=== PATIENT | female | born 1970 | race Caucasian/White ===

== ENCOUNTER 2018-07-06 08:46 | Outpatient (RCR) | payer BC, SELFPAY | END 2018-07-09 23:59 | disposition home or self-care (01) | LOC: INF 08:46 | PROVIDERS: PCP Physician Assistant; Visit Provider Internal Medicine Hematology & Oncology | DX: R69 Illness, unspecified (principal) ==

== ENCOUNTER 2018-07-31 01:02 | Outpatient (RCR) | payer MEDICAID, SELFPAY ==
[2018-07-17] MEDS: Normal Saline Flush 10 ML SYR IVP (07:58)
[2018-07-17 08:02] LABS: Abs Immature Grans 0.01 k/cumm (0.0-0.09); Absolute Basophil Count 0.04 k/cumm (0.0-0.2); Absolute Eosinophil Count 0.78 k/cumm (0.0-0.7); Absolute Lymphocyte Count 0.67 k/cumm (1.2-3.4); Absolute Monocyte Count 0.38 k/cumm (0.11-0.7); Absolute Neutrophil Count 4.42 k/cumm (1.2-6.7); Basophils % 0.6; Eosinophils % 12.4; HCT 35.1 % (36.0-46.0); HGB 10.9 g/dL (12.0-15.5); Immature Grans % 0.2; Lymphocytes % 10.6; Mean Corp. HGB Concentration 31.1 g/dL (32.0-36.0); Mean Corpuscular Hemoglobin 24.2 pg (27.0-33.0); Mean Corpuscular Volume 77.8 fL (80-95); Mean Platelet Volume 9.9 fL (8.0-11.0); Neutrophils % 70.2; Platelet Count 376 x1000/uL (130-400); RBC 4.51 m/cumm (4.00-5.20); RBC Distribution Width 14.3 % (11.7-14.6)
[2018-07-17 08:14] LABS: ALT 15 U/L (12-78); AST 9 U/L (15-37); Albumin 3.7 g/dL (3.4-5.0); Alkaline Phosphatase 76 U/L (46-116); Anion Gap 8.7 mmol/L (3-11); BUN 14 mg/dL (7-18); Bilirubin, Total 0.2 mg/dL (0.2-1.0); CO2 27.3 mmol/L (21.0-32.0); CREATININE 1.03 mg/dL (0.55-1.02); Calcium 10.2 mg/dL (8.5-10.1); Chloride 105 mmol/L (98-107); Estimated GFR 57.69 (mL/min/1.73m2); Glucose 100 mg/dL (70-100); Sodium 141 mmol/L (136-145); Total Protein 7.9 g/dL (6.4-8.2)
[2018-07-20 11:17] LABS: CEA <0.5 ng/ml
[2018-07-23] MEDS: Heparin 500 UNITS/5 ML SYRINGE IV (12:03)
[2018-07-23] MEDS: Normal Saline Flush 10 ML SYR IVP (12:03)
[2018-07-23 12:13] LABS: Absolute Basophil Count 0.01 k/cumm (0.0-0.2); Absolute Eosinophil Count 0.39 k/cumm (0.0-0.7); Absolute Lymphocyte Count 0.45 k/cumm (1.2-3.4); Absolute Monocyte Count 0.18 k/cumm (0.11-0.7); Absolute Neutrophil Count 3.26 k/cumm (1.2-6.7); Basophils % 0.2; Eosinophils % 9.1; HCT 33.2 % (36.0-46.0); HGB 10.4 g/dL (12.0-15.5); Lymphocytes % 10.5; Mean Corp. HGB Concentration 31.3 g/dL (32.0-36.0); Mean Corpuscular Hemoglobin 24.1 pg (27.0-33.0); Mean Corpuscular Volume 76.9 fL (80-95); Mean Platelet Volume 10.5 fL (8.0-11.0); Monocytes % 4.2; Platelet Count 309 x1000/uL (130-400); RBC 4.32 m/cumm (4.00-5.20); White Blood Cell Count 4.29 k/cumm (4.4-10.8)
[2018-07-23 12:27] LABS: ALT 23 U/L (12-78); AST 12 U/L (15-37); Albumin 3.3 g/dL (3.4-5.0); Alkaline Phosphatase 68 U/L (46-116); Anion Gap 10.1 mmol/L (3-11); BUN 13 mg/dL (7-18); Bilirubin, Total 0.2 mg/dL (0.2-1.0); CO2 26.9 mmol/L (21.0-32.0); CREATININE 0.96 mg/dL (0.55-1.02); Calcium 8.9 mg/dL (8.5-10.1); Chloride 106 mmol/L (98-107); Glucose 104 mg/dL (70-100); Potassium 3.6 mmol/L (3.5-5.1); Sodium 143 mmol/L (136-145); Total Protein 6.8 g/dL (6.4-8.2)
[2018-07-24 08:55] LABS: CEA <0.5 ng/ml
== END 2018-08-06 23:59 | disposition home or self-care (01) ==
LOC: INF 01:02
PROVIDERS: PCP Physician Assistant; Visit Provider Internal Medicine Hematology & Oncology
DX: C20 Malignant neoplasm of rectum (principal); Z45.2 Encounter for adjustment and management of vascular access device
CPT/HCPCS: 36591; 80053; 82378; 85025

== ENCOUNTER 2018-08-28 01:27 | Outpatient (RCR) | payer MEDICAID, SELFPAY ==
[2018-08-14] MEDS: Normal Saline Flush 10 ML SYR IVP (08:11)
[2018-08-14 08:20] LABS: Absolute Basophil Count 0.04 k/cumm (0.0-0.2); Absolute Eosinophil Count 0.59 k/cumm (0.0-0.7); Absolute Lymphocyte Count 0.51 k/cumm (1.2-3.4); Absolute Monocyte Count 0.43 k/cumm (0.11-0.7); Absolute Neutrophil Count 1.27 k/cumm (1.2-6.7); Basophils % 1.4; Eosinophils % 20.8; HCT 33.4 % (36.0-46.0); HGB 10.6 g/dL (12.0-15.5); Mean Corp. HGB Concentration 31.7 g/dL (32.0-36.0); Mean Corpuscular Hemoglobin 23.5 pg (27.0-33.0); Mean Corpuscular Volume 73.9 fL (80-95); Monocytes % 15.1; Neutrophils % 44.7; RBC 4.52 m/cumm (4.00-5.20); RBC Distribution Width 15.2 % (11.7-14.6); White Blood Cell Count 2.84 k/cumm (4.4-10.8)
[2018-08-14 08:29] LABS: ALT 43 U/L (12-78); AST 14 U/L (15-37); Albumin 3.2 g/dL (3.4-5.0); Alkaline Phosphatase 98 U/L (46-116); Anion Gap 8.3 mmol/L (3-11); BUN 10 mg/dL (7-18); Bilirubin, Total 0.2 mg/dL (0.2-1.0); CO2 25.7 mmol/L (21.0-32.0); CREATININE 0.81 mg/dL (0.55-1.02); Calcium 8.8 mg/dL (8.5-10.1); Chloride 107 mmol/L (98-107); Glucose 98 mg/dL (70-100); Potassium 3.6 mmol/L (3.5-5.1); Sodium 141 mmol/L (136-145); Total Protein 6.5 g/dL (6.4-8.2)
[2018-08-14 08:38] LABS: Anisocytosis 1+; Diff Comment Diff Reviewed; Platelet Count 258 x1000/uL (130-400)
[2018-08-14 08:39] LABS: Hypochromasia 1+; Microcytosis 2+; Ovalocytes 2+; Polychromasia Present
[2018-08-14 08:40] LABS: Poikilocytes 1+
[2018-08-17 10:30] LABS: CEA <0.5 ng/ml
[2018-08-28 09:26] LABS: Absolute Basophil Count 0.02 k/cumm (0.0-0.2); Absolute Eosinophil Count 0.46 k/cumm (0.0-0.7); Absolute Lymphocyte Count 0.52 k/cumm (1.2-3.4); Absolute Monocyte Count 0.26 k/cumm (0.11-0.7); Absolute Neutrophil Count 1.33 k/cumm (1.2-6.7); Basophils % 0.8; Eosinophils % 17.8; HCT 33.9 % (36.0-46.0); Lymphocytes % 20.1; Mean Corp. HGB Concentration 32.4 g/dL (32.0-36.0); Mean Corpuscular Hemoglobin 23.6 pg (27.0-33.0); Mean Corpuscular Volume 72.7 fL (80-95); Neutrophils % 51.3; Platelet Count 236 x1000/uL (130-400); RBC 4.66 m/cumm (4.00-5.20); RBC Distribution Width 16.6 % (11.7-14.6); White Blood Cell Count 2.59 k/cumm (4.4-10.8)
[2018-08-28] MEDS: Normal Saline Flush 10 ML SYR IVP (09:34)
[2018-08-28 09:44] LABS: ALT 22 U/L (12-78); AST 16 U/L (15-37); Albumin 3.6 g/dL (3.4-5.0); Alkaline Phosphatase 92 U/L (46-116); Anion Gap 9.8 mmol/L (3-11); BUN 11 mg/dL (7-18); Bilirubin, Total 0.4 mg/dL (0.2-1.0); CO2 22.2 mmol/L (21.0-32.0); CREATININE 0.86 mg/dL (0.55-1.02); Calcium 9.3 mg/dL (8.5-10.1); Chloride 105 mmol/L (98-107); Glucose 95 mg/dL (70-100); Sodium 137 mmol/L (136-145); Total Protein 7.3 g/dL (6.4-8.2)
[2018-08-28 09:45] LABS: Anisocytosis 1+; Diff Comment Diff Reviewed; Hypochromasia 1+; Microcytosis 2+; Schistocytes 1+
[2018-08-28 09:46] LABS: Poikilocytes 2+
[2018-08-28 09:48] LABS: Ovalocytes 2+
[2018-08-31 09:57] LABS: CEA <0.5 ng/ml
== END 2018-09-06 23:59 | disposition home or self-care (01) ==
LOC: INF 01:27
PROVIDERS: PCP Physician Assistant; Visit Provider Internal Medicine Hematology & Oncology
DX: C20 Malignant neoplasm of rectum (principal); Z45.2 Encounter for adjustment and management of vascular access device
CPT/HCPCS: 36591; 80053; 82378; 85025

== ENCOUNTER 2018-09-25 00:54 | Outpatient (RCR) | payer MEDICAID, SELFPAY ==
[2018-09-11] MEDS: Normal Saline Flush 10 ML SYR IVP (07:11)
[2018-09-11 07:22] LABS: Absolute Basophil Count 0.03 k/cumm (0.0-0.2); Absolute Eosinophil Count 0.26 k/cumm (0.0-0.7); Absolute Lymphocyte Count 0.47 k/cumm (1.2-3.4); Absolute Monocyte Count 0.34 k/cumm (0.11-0.7); Absolute Neutrophil Count 1.55 k/cumm (1.2-6.7); Basophils % 1.1; Eosinophils % 9.8; HGB 10.7 g/dL (12.0-15.5); Lymphocytes % 17.7; Mean Corp. HGB Concentration 31.5 g/dL (32.0-36.0); Mean Corpuscular Hemoglobin 23.2 pg (27.0-33.0); Mean Corpuscular Volume 73.6 fL (80-95); Mean Platelet Volume 9.9 fL (8.0-11.0); Monocytes % 12.8; Neutrophils % 58.6; Platelet Count 201 x1000/uL (130-400); RBC 4.62 m/cumm (4.00-5.20); RBC Distribution Width 19.1 % (11.7-14.6); White Blood Cell Count 2.65 k/cumm (4.4-10.8)
[2018-09-11 07:36] LABS: ALT 27 U/L (12-78); AST 15 U/L (15-37); Albumin 3.4 g/dL (3.4-5.0); Alkaline Phosphatase 91 U/L (46-116); Anion Gap 10.7 mmol/L (3-11); BUN 8 mg/dL (7-18); Bilirubin, Total 0.4 mg/dL (0.2-1.0); CO2 23.3 mmol/L (21.0-32.0); CREATININE 0.89 mg/dL (0.55-1.02); Calcium 9.2 mg/dL (8.5-10.1); Chloride 106 mmol/L (98-107); Glucose 98 mg/dL (70-100); Sodium 140 mmol/L (136-145); Total Protein 6.9 g/dL (6.4-8.2)
[2018-09-25] MEDS: Normal Saline Flush 10 ML SYR IVP (06:50)
[2018-09-25 07:24] LABS: Abs Immature Grans 0.01 k/cumm (0.0-0.09); Absolute Basophil Count 0.05 k/cumm (0.0-0.2); Absolute Lymphocyte Count 0.39 k/cumm (1.2-3.4); Absolute Monocyte Count 0.26 k/cumm (0.11-0.7); Absolute Neutrophil Count 1.66 k/cumm (1.2-6.7); Basophils % 1.8; Eosinophils % 14.4; HCT 34.4 % (36.0-46.0); HGB 10.9 g/dL (12.0-15.5); Immature Grans % 0.4; Lymphocytes % 14.1; Mean Corp. HGB Concentration 31.7 g/dL (32.0-36.0); Mean Corpuscular Hemoglobin 23.5 pg (27.0-33.0); Mean Corpuscular Volume 74.1 fL (80-95); Monocytes % 9.4; Neutrophils % 59.9; RBC 4.64 m/cumm (4.00-5.20); RBC Distribution Width 21.6 % (11.7-14.6); White Blood Cell Count 2.77 k/cumm (4.4-10.8)
[2018-09-25 07:45] LABS: ALT 36 U/L (12-78); AST 26 U/L (15-37); Albumin 3.4 g/dL (3.4-5.0); Alkaline Phosphatase 80 U/L (46-116); Anion Gap 11.1 mmol/L (3-11); BUN 10 mg/dL (7-18); Bilirubin, Total 0.5 mg/dL (0.2-1.0); CO2 25.9 mmol/L (21.0-32.0); Calcium 9.4 mg/dL (8.5-10.1); Chloride 106 mmol/L (98-107); Estimated GFR 53.47 (mL/min/1.73m2); Ferritin 47 ng/mL (8-388); Glucose 117 mg/dL (70-100); Iron 39 ug/dL (50-175); Potassium 3.8 mmol/L (3.5-5.1); Sodium 143 mmol/L (136-145); Total Iron Binding Capacity 427 ug/dL (250-450); Total Protein 7.1 g/dL (6.4-8.2); Transferrin Sat 9 % (15-50)
[2018-09-25 07:58] LABS: Anisocytosis 2+; Diff Comment RBC Morph Reviewed; Microcytosis 2+; Platelet Count 160 x1000/uL (130-400); Polychromasia Present
[2018-09-25 07:59] LABS: Poikilocytes 1+
== END 2018-10-06 23:59 | disposition home or self-care (01) ==
LOC: INF 00:54
PROVIDERS: PCP Physician Assistant; Visit Provider Internal Medicine Hematology & Oncology
DX: C20 Malignant neoplasm of rectum (principal); Z91.89 Other specified personal risk factors, not elsewhere classified; Z45.2 Encounter for adjustment and management of vascular access device
CPT/HCPCS: 36591; 80053; 82728; 83540; 83550; 85025

== ENCOUNTER 2018-10-23 01:45 | Outpatient (RCR) | payer MEDICAID, SELFPAY ==
[2018-10-09 07:24] LABS: Abs Immature Grans 0.01 k/cumm (0.0-0.09); Absolute Basophil Count 0.06 k/cumm (0.0-0.2); Absolute Eosinophil Count 0.28 k/cumm (0.0-0.7); Absolute Lymphocyte Count 0.46 k/cumm (1.2-3.4); Absolute Monocyte Count 0.33 k/cumm (0.11-0.7); Absolute Neutrophil Count 1.52 k/cumm (1.2-6.7); Basophils % 2.3; Eosinophils % 10.5; HGB 11.1 g/dL (12.0-15.5); Immature Grans % 0.4; Lymphocytes % 17.3; Mean Corp. HGB Concentration 31.7 g/dL (32.0-36.0); Mean Corpuscular Volume 75.6 fL (80-95); Mean Platelet Volume 10.3 fL (8.0-11.0); Monocytes % 12.4; Neutrophils % 57.1; RBC 4.63 m/cumm (4.00-5.20); RBC Distribution Width 23.8 % (11.7-14.6); White Blood Cell Count 2.66 k/cumm (4.4-10.8)
[2018-10-09] MEDS: Normal Saline Flush 10 ML SYR IVP ×2 (07:30)
[2018-10-09 07:34] LABS: ALT 33 U/L (12-78); AST 22 U/L (15-37); Albumin 3.4 g/dL (3.4-5.0); Alkaline Phosphatase 91 U/L (46-116); BUN 9 mg/dL (7-18); Bilirubin, Total 0.5 mg/dL (0.2-1.0); CREATININE 0.85 mg/dL (0.55-1.02); Calcium 9.4 mg/dL (8.5-10.1); Chloride 107 mmol/L (98-107); Glucose 97 mg/dL (70-100); Potassium 4.1 mmol/L (3.5-5.1); Sodium 141 mmol/L (136-145)
[2018-10-09 07:42] LABS: Platelet Count 147 x1000/uL (130-400)
[2018-10-09 07:43] LABS: Anisocytosis 2+; Diff Comment RBC Morph Reviewed; Microcytosis 2+
[2018-10-09 07:44] LABS: Poikilocytes 2+
[2018-10-09 10:02] LABS: Iron 51 ug/dL (50-175); Total Iron Binding Capacity 409 ug/dL (250-450); Transferrin Sat 12 % (15-50)
[2018-10-12 11:17] LABS: CEA <0.5 ng/ml
[2018-10-23] MEDS: Normal Saline Flush 10 ML SYR IVP (08:06)
[2018-10-23 08:19] LABS: Absolute Basophil Count 0.03 k/cumm (0.0-0.2); Absolute Eosinophil Count 0.19 k/cumm (0.0-0.7); Absolute Lymphocyte Count 0.48 k/cumm (1.2-3.4); Absolute Monocyte Count 0.37 k/cumm (0.11-0.7); Absolute Neutrophil Count 1.43 k/cumm (1.2-6.7); Basophils % 1.2; Eosinophils % 7.6; HCT 34.2 % (36.0-46.0); HGB 11.5 g/dL (12.0-15.5); Lymphocytes % 19.2; Mean Corp. HGB Concentration 33.6 g/dL (32.0-36.0); Mean Corpuscular Hemoglobin 26.5 pg (27.0-33.0); Mean Corpuscular Volume 78.8 fL (80-95); Mean Platelet Volume 10.3 fL (8.0-11.0); Monocytes % 14.8; Neutrophils % 57.2; RBC 4.34 m/cumm (4.00-5.20); RBC Distribution Width 24.8 % (11.7-14.6)
[2018-10-23 08:38] LABS: Platelet Count 137 x1000/uL (130-400)
[2018-10-23 08:39] LABS: Anisocytosis 3+; Hypochromasia 2+; Microcytosis 3+; Schistocytes 1+
[2018-10-23 08:40] LABS: Poikilocytes 1+
[2018-10-23 08:41] LABS: ALT 43 U/L (12-78); AST 32 U/L (15-37); Albumin 3.5 g/dL (3.4-5.0); Alkaline Phosphatase 91 U/L (46-116); Anion Gap 11.6 mmol/L (3-11); BUN 12 mg/dL (7-18); Bilirubin, Total 0.7 mg/dL (0.2-1.0); CO2 23.4 mmol/L (21.0-32.0); Calcium 9.3 mg/dL (8.5-10.1); Chloride 106 mmol/L (98-107); Glucose 103 mg/dL (70-100); Potassium 3.7 mmol/L (3.5-5.1); Sodium 141 mmol/L (136-145); Total Protein 7.1 g/dL (6.4-8.2)
== END 2018-11-06 23:59 | disposition home or self-care (01) ==
LOC: INF 01:45
PROVIDERS: PCP Physician Assistant; Visit Provider Internal Medicine Hematology & Oncology
DX: C20 Malignant neoplasm of rectum (principal); Z45.2 Encounter for adjustment and management of vascular access device
CPT/HCPCS: 36591; 80053; 82378; 83540; 83550; 85025

== ENCOUNTER 2018-11-13 02:49 | Outpatient (RCR) | payer MEDICAID, SELFPAY ==
[2018-11-13] MEDS: Normal Saline Flush 10 ML SYR IVP (12:53)
[2018-11-13] MEDS: Heparin 500 UNITS/5 ML SYRINGE IV (12:53)
[2018-11-13 13:00] LABS: Abs Immature Grans 0.05 k/cumm (0.0-0.09); Absolute Basophil Count 0.05 k/cumm (0.0-0.2); Absolute Eosinophil Count 0.78 k/cumm (0.0-0.7); Absolute Lymphocyte Count 0.62 k/cumm (1.2-3.4); Absolute Monocyte Count 0.72 k/cumm (0.11-0.7); Absolute Neutrophil Count 1.42 k/cumm (1.2-6.7); Basophils % 1.4; Eosinophils % 21.4; HCT 35.8 % (36.0-46.0); HGB 11.7 g/dL (12.0-15.5); Immature Grans % 1.4; Mean Corp. HGB Concentration 32.7 g/dL (32.0-36.0); Mean Corpuscular Hemoglobin 27.9 pg (27.0-33.0); Mean Corpuscular Volume 85.4 fL (80-95); Mean Platelet Volume 9.7 fL (8.0-11.0); Monocytes % 19.8; Platelet Count 249 x1000/uL (130-400); RBC 4.19 m/cumm (4.00-5.20); RBC Distribution Width 22.8 % (11.7-14.6); White Blood Cell Count 3.64 k/cumm (4.4-10.8)
[2018-11-13 13:17] LABS: ALT 39 U/L (12-78); AST 29 U/L (15-37); Albumin 3.2 g/dL (3.4-5.0); Alkaline Phosphatase 95 U/L (46-116); Anion Gap 9.6 mmol/L (3-11); BUN 14 mg/dL (7-18); Bilirubin, Total 0.3 mg/dL (0.2-1.0); CO2 25.4 mmol/L (21.0-32.0); CREATININE 0.83 mg/dL (0.55-1.02); Calcium 9.2 mg/dL (8.5-10.1); Chloride 105 mmol/L (98-107); Glucose 105 mg/dL (70-100); Potassium 3.8 mmol/L (3.5-5.1); Sodium 140 mmol/L (136-145); Total Protein 6.8 g/dL (6.4-8.2)
[2018-11-13 13:21] LABS: Anisocytosis 3+; Diff Comment Agrees w/ Instrument; Polychromasia Present
[2018-11-13 13:22] LABS: Poikilocytes 2+
== END 2018-12-06 23:59 | disposition home or self-care (01) ==
LOC: INF 02:49
PROVIDERS: PCP Physician Assistant; Visit Provider Internal Medicine Hematology & Oncology
DX: C20 Malignant neoplasm of rectum (principal); Z45.2 Encounter for adjustment and management of vascular access device
CPT/HCPCS: 36591; 80053; 85025

== ENCOUNTER 2019-02-12 03:38 | Outpatient (RCR) | payer MEDICAID, SELFPAY ==
[2019-02-12] MEDS: Heparin 500 UNITS/5 ML SYRINGE IV (13:41)
[2019-02-12] MEDS: Normal Saline Flush 10 ML SYR IVP (13:42)
[2019-02-12 14:01] LABS: Abs Immature Grans 0.01 k/cumm (0.0-0.09); Absolute Basophil Count 0.02 k/cumm (0.0-0.2); Absolute Eosinophil Count 0.34 k/cumm (0.0-0.7); Absolute Lymphocyte Count 0.84 k/cumm (1.2-3.4); Absolute Neutrophil Count 2.68 k/cumm (1.2-6.7); Basophils % 0.5; Eosinophils % 7.9; HCT 39.1 % (36.0-46.0); HGB 13.1 g/dL (12.0-15.5); Immature Grans % 0.2; Lymphocytes % 19.6; Mean Corp. HGB Concentration 33.5 g/dL (32.0-36.0); Mean Corpuscular Hemoglobin 28.4 pg (27.0-33.0); Mean Corpuscular Volume 84.8 fL (80-95); Mean Platelet Volume 9.9 fL (8.0-11.0); Monocytes % 9.3; Neutrophils % 62.5; Platelet Count 302 x1000/uL (130-400); RBC 4.61 m/cumm (4.00-5.20); RBC Distribution Width 13.2 % (11.7-14.6); White Blood Cell Count 4.29 k/cumm (4.4-10.8)
[2019-02-12 14:10] LABS: ALT 22 U/L (14-59); AST 12 U/L (15-37); Albumin 3.6 g/dL (3.4-5.0); Alkaline Phosphatase 81 U/L (46-116); Anion Gap 7.9 mmol/L (3-11); BUN 17 mg/dL (7-18); Bilirubin, Total 0.2 mg/dL (0.2-1.0); CO2 27.1 mmol/L (21.0-32.0); CREATININE 0.85 mg/dL (0.55-1.02); Calcium 9.4 mg/dL (8.5-10.1); Chloride 107 mmol/L (98-107); Glucose 116 mg/dL (70-100); Potassium 3.7 mmol/L (3.5-5.1); Sodium 142 mmol/L (136-145); Total Protein 7.1 g/dL (6.4-8.2)
[2019-02-12 16:46] LABS: Vitamin B12 220 pg/mL (193-986)
[2019-02-15 10:49] LABS: CEA <0.5 ng/ml
== END 2019-03-08 23:59 | disposition home or self-care (01) ==
LOC: INF 03:38
PROVIDERS: PCP Physician Assistant; Visit Provider Internal Medicine Hematology & Oncology
DX: C20 Malignant neoplasm of rectum (principal); Z45.2 Encounter for adjustment and management of vascular access device
CPT/HCPCS: 36591; 80053; 82378; 82607; 84443; 85025

== ENCOUNTER 2019-04-15 03:14 | Outpatient (RCR) | payer MEDICAID, SELFPAY ==
[2019-04-15] MEDS: Heparin 500 UNITS/5 ML SYRINGE IV (08:05)
[2019-04-15] MEDS: Normal Saline Flush 10 ML SYR IVP (08:05)
[2019-04-15 08:20] LABS: Abs Immature Grans 0.01 k/cumm (0.0-0.09); Absolute Basophil Count 0.02 k/cumm (0.0-0.2); Absolute Eosinophil Count 0.29 k/cumm (0.0-0.7); Absolute Lymphocyte Count 0.77 k/cumm (1.2-3.4); Absolute Monocyte Count 0.37 k/cumm (0.11-0.7); Absolute Neutrophil Count 3.12 k/cumm (1.2-6.7); Basophils % 0.4; Eosinophils % 6.3; HGB 13.8 g/dL (12.0-15.5); Immature Grans % 0.2; Lymphocytes % 16.8; Mean Corp. HGB Concentration 32.9 g/dL (32.0-36.0); Mean Corpuscular Hemoglobin 27.1 pg (27.0-33.0); Mean Corpuscular Volume 82.5 fL (80-95); Mean Platelet Volume 9.7 fL (8.0-11.0); Monocytes % 8.1; Neutrophils % 68.2; Platelet Count 280 x1000/uL (130-400); RBC 5.09 m/cumm (4.00-5.20); RBC Distribution Width 14.7 % (11.7-14.6); White Blood Cell Count 4.58 k/cumm (4.4-10.8)
[2019-04-15 08:38] LABS: ALT 26 U/L (14-59); AST 14 U/L (15-37); Albumin 3.7 g/dL (3.4-5.0); Alkaline Phosphatase 81 U/L (46-116); Anion Gap 8.9 mmol/L (3-11); BUN 19 mg/dL (7-18); Bilirubin, Total 0.3 mg/dL (0.2-1.0); CO2 26.1 mmol/L (21.0-32.0); CREATININE 0.75 mg/dL (0.55-1.02); Calcium 9.4 mg/dL (8.5-10.1); Chloride 107 mmol/L (98-107); Glucose 99 mg/dL (70-100); Potassium 4.1 mmol/L (3.5-5.1); Sodium 142 mmol/L (136-145); Total Protein 7.1 g/dL (6.4-8.2)
[2019-04-15 11:11] LABS: Vitamin B12 782 pg/mL (193-986)
[2019-04-16 10:03] LABS: CEA <0.5 ng/ml
== END 2019-05-08 23:59 | disposition home or self-care (01) ==
LOC: INF 03:14
PROVIDERS: PCP Physician Assistant; Visit Provider Internal Medicine Hematology & Oncology
DX: C20 Malignant neoplasm of rectum (principal); Z45.2 Encounter for adjustment and management of vascular access device
CPT/HCPCS: 36591; 80053; 82378; 82607; 85025

== ENCOUNTER 2019-07-30 12:56 | Outpatient (CLI) | payer MEDICAID, SELFPAY ==
[2019-07-30 13:43] LABS: Abs Immature Grans 0.03 k/cumm (0.0-0.09); Absolute Basophil Count 0.02 k/cumm (0.0-0.2); Absolute Eosinophil Count 0.32 k/cumm (0.0-0.7); Absolute Lymphocyte Count 1.21 k/cumm (1.2-3.4); Absolute Monocyte Count 0.59 k/cumm (0.11-0.7); Basophils % 0.3; HCT 43.1 % (36.0-46.0); HGB 14.4 g/dL (12.0-15.5); Immature Grans % 0.5 %; Mean Corp. HGB Concentration 33.4 g/dL (32.0-36.0); Mean Corpuscular Hemoglobin 27.7 pg (27.0-33.0); Mean Platelet Volume 9.1 fL (8.0-11.0); Monocytes % 9.3; Neutrophils % 65.9; Platelet Count 319 x1000/uL (130-400); RBC 5.19 m/cumm (4.00-5.20); RBC Distribution Width 14.3 % (11.7-14.6); White Blood Cell Count 6.37 k/cumm (4.4-10.8)
[2019-07-30 14:00] LABS: ALT 20 U/L (14-59); AST 13 U/L (15-37); Albumin 3.7 g/dL (3.4-5.0); Alkaline Phosphatase 89 U/L (46-116); Anion Gap 7.9 mmol/L (3-11); BUN 13 mg/dL (7-18); Bilirubin, Total 0.2 mg/dL (0.2-1.0); CO2 29.1 mmol/L (21.0-32.0); Calcium 9.1 mg/dL (8.5-10.1); Chloride 106 mmol/L (98-107); Glucose 98 mg/dL (74-106); Potassium 3.9 mmol/L (3.5-5.1); Sodium 143 mmol/L (136-145); Total Protein 7.1 g/dL (6.4-8.2)
[2019-08-02 09:26] LABS: CEA <0.5 ng/mL (See Note)
== END 2019-07-30 13:16 ==
PROVIDERS: PCP Physician Assistant; Visit Provider Internal Medicine Hematology & Oncology
DX: C20 Malignant neoplasm of rectum (principal)
CPT/HCPCS: 36415; 80053; 82378; 85025

== ENCOUNTER 2021-08-23 02:01 | Outpatient (CLI) | payer MEDICAID, SELFPAY ==
--- NOTE | 2021-08-23 | DI.US_ITS ---
Exam(s) US ABDOMEN EXAM: US ABDOMEN CLINICAL HISTORY: RECTAL CANCER C20 ELEVATED LIVER ENZYMES R74.8 TECHNIQUE: Ultrasound of complete upper abdomen performed using standard protocol. COMPARISON: No exams were available for comparison FINDINGS: There is no ascites evident. LIVER: Liver is somewhat hyperechoic indicating steatosis. There are no focal findings in the right lobe. In the subcapsular aspect of the left lobe there is a well-defined small 1.0 x 0.8 x 1.1 cm no n-cystic bone lesion. GALLBLADDER/BILIARY: There are no gallstones. No gallbladder wall edema nor pericholecystic fluid. The common hepatic duct isnot dilated, measuring 4mm at the level of kathryn hepatis. PANCREAS: There is no evidence of pancreatic mass nor dilatation of the pancreatic duct. SPLEEN: The spleen is not enlarged and there are no intrasplenic lesions evident. KIDNEYS:Kidneys exhibit normal size with no evidence of solid mass, calculus, nor hydronephrosis. No cortical cysts evident. ABDOMINAL AORTA: There is no evidence of abdominal aortic aneurysm. IVC: Normal diameter where visualized. IMPRESSION: 1. No evidence of cholelithiasis nor dilatation of the biliary tree. 2. Solitary subcapsular lesion left hepatic lobe which measures 11 x 8 x 10 millimeter. This is not a cyst. It is not an obvious typical hyperechoic hemangioma. For this reason I recommend follow-up contrast infused MRI using hemangioma protocol. 3. There is no ascites. DATA REPOSITORY:
== END 2021-08-23 02:21 ==
PROVIDERS: PCP Physician Assistant; Visit Provider Nurse Practitioner Family
DX: C20 Malignant neoplasm of rectum (principal); R74.8 Abnormal levels of other serum enzymes; K76.89 Other specified diseases of liver
CPT/HCPCS: 76700

== ENCOUNTER 2021-08-23 03:55 | Outpatient (CLI) | payer MEDICAID, SELFPAY ==
[2021-08-23 07:58] LABS: Abs Immature Grans 0.02 10^3/uL (0.0-0.06); Absolute Basophil Count 0.03 10^3/uL (0.0-0.2); Absolute Eosinophil Count 0.55 10^3/uL (0.0-0.7); Absolute Lymphocyte Count 1.42 10^3/uL (1.2-3.4); Absolute Monocyte Count 0.54 10^3/uL (0.1-0.8); Absolute Neutrophil Count 3.36 10^3/uL (1.2-6.7); Basophils % 0.5; Eosinophils % 9.3; HCT 42.7 % (36.0-46.0); HGB 13.7 g/dL (11.2-15.7); Immature Grans % 0.3; MCH 27.6 pg (27.0-33.0); MCHC 32.1 % (32.0-36.0); MCV 86.1 fL (80-95); MPV 9.6 fL (8.0-11.0); Monocytes % 9.1; Neutrophils % 56.8; Nucleated RBC 0 %; Platelet Count 235 10^3/uL (130-400); RBC 4.96 10^6/uL (3.93-5.22); RDW 13.3 % (11.7-14.6); RDW-SD 41.7 fL; WBC 5.92 10^3/uL (4.4-10.8)
[2021-08-23 08:13] LABS: ALT 21 U/L (14-59); AST 11 U/L (15-37); Albumin 3.5 g/dL (3.4-5.0); Alkaline Phosphatase 72 U/L (46-116); Anion Gap 7.5 mmol/L (3-11); BUN 19 mg/dL (7-18); Bilirubin, Total 0.3 mg/dL (0.2-1.0); CO2 24.5 mmol/L (21.0-32.0); CREATININE 0.9 mg/dL (0.55-1.02); Calcium 8.4 mg/dL (8.5-10.1); Chloride 111 mmol/L (98-107); Glucose 99 mg/dL (74-106); Sodium 143 mmol/L (136-145); Total Protein 6.8 g/dL (6.4-8.2)
== END 2021-08-23 03:56 | disposition home or self-care (01) ==
LOC: LBO 03:55
PROVIDERS: PCP Physician Assistant; Visit Provider Internal Medicine Hematology & Oncology
DX: C20 Malignant neoplasm of rectum (principal)
CPT/HCPCS: 36415; 80053; 85025

== ENCOUNTER 2021-09-11 02:47 | Outpatient (CLI) | payer MEDICAID, SELFPAY ==
--- NOTE | 2021-09-11 09:15 | DI.MRI_ITS ---
Exam(s) MR ABDOMEN WO/W EXAM: MR ABDOMEN WO/W CLINICAL HISTORY: > 1 CM LIVER LESION, LT LOBE, K76.9; PERSONAL H/O RECTAL CA, Z85.048 TECHNIQUE: Multiplanar multisequence MRA of the Abdomen was performed. CONTRAST MATERIAL: IV Contrast: 20 mL of Dotarem contrast administered. COMPARISON: US US ABDOMEN from 08/23/2021 FINDINGS: Liver: No hepatic masses are seen. There is homogeneous enhancement of the liver. Pancreas: Unremarkable. Gallbladder and Bile Ducts: Unremarkable. Adrenals: Unremarkable. Kidneys: Unremarkable. Spleen: Unremarkable. Bowel: Unremarkable. Aorta: Unremarkable. Soft Tissues: Unremarkable. Bone: Unremarkable. Lymph Nodes: Unremarkable. IMPRESSION: No evidence of a hepatic mass. Specifically, no abnormal enhancement or mass is seen in the left lobe of the liver to correspond to the ultrasound finding on 08/23/2021. A follow-up ultrasound in 2 month s is recommended for re-evaluation. DATA REPOSITORY:
[2021-09-11 09:16] LABS: Abs Immature Grans 0.02 10^3/uL (0.0-0.06); Absolute Basophil Count 0.03 10^3/uL (0.0-0.2); Absolute Eosinophil Count 0.41 10^3/uL (0.0-0.7); Absolute Lymphocyte Count 1.77 10^3/uL (1.2-3.4); Absolute Monocyte Count 0.54 10^3/uL (0.1-0.8); Absolute Neutrophil Count 4.26 10^3/uL (1.2-6.7); Basophils % 0.4; Eosinophils % 5.8; HCT 42.3 % (36.0-46.0); HGB 13.9 g/dL (11.2-15.7); Immature Grans % 0.3; Lymphocytes % 25.2; MCH 27.7 pg (27.0-33.0); MCHC 32.9 % (32.0-36.0); MCV 84.3 fL (80-95); MPV 9.3 fL (8.0-11.0); Monocytes % 7.7; Neutrophils % 60.6; Nucleated RBC 0 %; Platelet Count 290 10^3/uL (130-400); RBC 5.02 10^6/uL (3.93-5.22); RDW 12.8 % (11.7-14.6); WBC 7.03 10^3/uL (4.4-10.8)
[2021-09-11 09:33] LABS: ALT 29 U/L (14-59); AST 19 U/L (15-37); Albumin 3.7 g/dL (3.4-5.0); Alkaline Phosphatase 76 U/L (46-116); Anion Gap 7.5 mmol/L (3-11); BUN 17 mg/dL (7-18); Bilirubin, Total 0.3 mg/dL (0.2-1.0); CO2 25.5 mmol/L (21.0-32.0); CREATININE 0.7 mg/dL (0.55-1.02); Calcium 8.8 mg/dL (8.5-10.1); Chloride 108 mmol/L (98-107); Glucose 99 mg/dL (74-106); Potassium 4.2 mmol/L (3.5-5.1); Sodium 141 mmol/L (136-145); Total Protein 7.2 g/dL (6.4-8.2)
[2021-09-11] MEDS: Gadoterate meglumine 20 ML VIAL IVP (09:39)
== END 2021-09-11 03:07 ==
PROVIDERS: Internal Medicine Hematology & Oncology; PCP Physician Assistant; Visit Provider Nurse Practitioner Adult Health
DX: K76.89 Other specified diseases of liver (principal); Z85.048 Personal history of other malignant neoplasm of rectum, rectosigmoid junction, and anus; R74.8 Abnormal levels of other serum enzymes
CPT/HCPCS: 74183; 80053; 85025